=== PATIENT | female | born 1985 | race Caucasian/White ===

== ENCOUNTER 2019-04-15 11:44 | Inpatient (IN) | payer OTHER ==
[2019-04-15 12:31] LABS: Urine Benzodiazepine Screen None Detected (None Detect); Urine Opiates Screen None Detected (None Detect)
[2019-04-15] MEDS ORDERED: Misoprostol TAB* 100 MCG VAGINAL ONE (13:14)
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
[2019-04-15 18:38] LABS: ABS Basophils 0.1 10^3/ul (0-0.2); ABS Eosinophils 0.1 10^3/ul (0-0.6); ABS Lymphocytes 1.6 10^3/ul (1.0-4.8); ABS Monocytes 0.7 10^3/ul (0-0.8); ABS Neutrophils 6.8 10^3/ul (1.5-7.7); Eosinophil % 0.6 %; Hematocrit 37 % (35-47); Hemoglobin 12.1 g/dL (12.0-16.0); Lymphocyte % 16.9 %; Mean Corpuscular HGB Conc 33 g/dL (31-36); Mean Corpuscular Hemoglobin 27 pg (27-31); Mean Corpuscular Volume 84 fL (80-97); Mean Platelet Volume 9.3 fL (7.4-10.4); Platelet Count 175 10^3/uL (150-450); Red Cell Distribution Width 14 % (10-15); White Blood Count 9.3 10^3/uL (3.5-10.8)
[2019-04-15 18:56] LABS: Urine Benzodiazepine Screen None Detected (None Detect); Urine Opiates Screen None Detected (None Detect)
[2019-04-15] MEDS ORDERED: Oxytocin in LR* 20 UNITS/1,000 ML BAG IVPB SCH (19:00)
--- NOTE | 2019-04-16 01:33 | PN ---
Progress Note - Progress Note Date of Service: 04/16/19 SOAP: Subjective: Pt reports increasing discomfort and requests nitrous for pain mgmt. Pt reports + bloody show -LOF, + FM. Objective: BP:114/86, P:66, FHR: 120bpm, + accels, -decels, moderate variability. ctx q 2- 3min, cervix: 4cm/80/-2 Pitocin at 3 Assessment: 33 y.o. , 40wks 1d EGA, cat I NST, active labor Plan: 1) Con't pitocin 2) Nitrous oxide for pain mgmt, reviewed risks versus benefits 3) Reevaluate PRN
[2019-04-16] MEDS ORDERED: Morphine 10 MG/ML VIAL (1 ml) IV ONE (04:14)
[2019-04-16] MEDS ORDERED: Promethazine INJ(RESTRICTED)* 25 MG/ML 1 ML VIAL IV ONE (04:40)
--- NOTE | 2019-04-16 12:39 | PN ---
Progress Note - Progress Note Date of Service: 04/16/19 SOAP: Subjective: Pt reports contractions still mild-moderate. + Bloody show, + FM Objective: BP: 130/77, P:89, FHR: 125 bpm, + accels, -decels, moderate variability, ctx q 5 min. cervix: 5/80/-1 AROM- clear, moderate Assessment: 33 y.o. , cat I NST, active labor Plan: 1) AROM: clear 2) Ambulation and rest alternating 3) Reevaluate in 3 hrs or sooner PRN, consider pitocin augmentation if no progress
--- NOTE | 2019-04-16 16:39 | PN ---
Progress Note - Progress Note Date of Service: 04/16/19 SOAP: Subjective: Pt reports contractions are strong but infrequent. Con't leaking of clear fluid. + FM, VB, + bloody show Objective: BP: 115/64, P:87, R:18, T:98.6, FHR: 130bpm, + accels, -decels, mod variability cervix: 5/80/-1 Assessment: 33 y.o. , 40w1d EGA, Cat 1 NST, inadequate ctx. Plan: 1) Reviewed mgmt option and R/B and pt agrees with plan to con't with pitocin augmentation 2) Position changes and ambulation alternating with rest 3) Reevaluate in 2 hr or sooner PRN
[2019-04-16] MEDS ORDERED: Oxytocin in LR* 20 UNITS/1,000 ML BAG IVPB SCH ×2 (17:00→21:00)
[2019-04-16] MEDS ORDERED: fentaNYL* 50 MCG/ML 2 ML VIAL (100 MCG VIAL) ONE (19:43)
[2019-04-16] MEDS ORDERED: fentaNYL* 50 MCG/ML 2 ML VIAL (100 MCG VIAL) IV ONE (19:50)
--- NOTE | 2019-04-16 20:34 | PROCNOTE ---
[facility] OB: Delivery Note - Delivery A Date of : 04/16/19 Time of : 20:18 Sex: Female Score 1 Minute: 9 Score 5 Minutes: 9 Gestational Age in Weeks and Days at Delivery: 40 Weeks and 1 Days Delivery Method: Spontaneous Vaginal Labor: Induced Did Patient attempt ?: N/A, No Previous Amniotic Fluid: Clear Estimated Blood Loss: 250 Anesthesia/Analgesia: IM/IV, Nitrous-Labor Delivered By: Rosa Baca - Nursery Level of Nursery: Regular/Bedside - Perineum Perineal Injury: None/Intact Perineal Repair: None - Events Delivery Events of Note: Pitocin During Labor Delivery Events of Note Comment: Left nuchal arm
[2019-04-16] MEDS ORDERED: Glycerin ADULT SUPP PR PRN (20:35)
[2019-04-16] MEDS ORDERED: Witch Hazel PAD* JAR TOPICAL PRN (20:35)
[2019-04-16] MEDS ORDERED: Dibucaine 1% 28.35 GM TUBE PR PRN (20:35)
[2019-04-16] MEDS ORDERED: Acetaminophen TAB* 325 MG PO PRN (20:35)
[2019-04-16] MEDS: Ibuprofen TAB* 600 MG PO PRN (20:55)
[2019-04-16] MEDS ORDERED: Simethicone TAB* 80 MG TAB.CHEW PO SCH (21:00)
[2019-04-16] MEDS ORDERED: Lactated Ringers 1000 ML Bag* 1,000 ML IV SCH (21:00)
[2019-04-17] MEDS: Ibuprofen TAB* 600 MG PO PRN ×2 (05:15→16:07)
[2019-04-17] MEDS ORDERED: Ferrous Gluconate TAB* 324 MG TAB PO SCH (09:00)
[2019-04-17 12:00] LABS: ABS Eosinophils 0.1 10^3/ul (0-0.6); ABS Lymphocytes 1.5 10^3/ul (1.0-4.8); ABS Monocytes 0.8 10^3/ul (0-0.8); ABS Neutrophils 10.3 10^3/ul (1.5-7.7); Eosinophil % 0.7 %; Hematocrit 35 % (35-47); Hemoglobin 11.3 g/dL (12.0-16.0); Lymphocyte % 11.9 %; Mean Corpuscular HGB Conc 32 g/dL (31-36); Mean Corpuscular Hemoglobin 28 pg (27-31); Mean Corpuscular Volume 85 fL (80-97); Mean Platelet Volume 9.8 fL (7.4-10.4); Platelet Count 143 10^3/uL (150-450); Red Blood Count 4.11 10^6 /uL (3.70-4.87); Red Cell Distribution Width 14 % (10-15); White Blood Count 12.8 10^3/uL (3.5-10.8)
[2019-04-17] MEDS: Docusate CAP* 100 MG PO SCH (16:16)
[2019-04-18] MEDS: Docusate CAP* 100 MG PO SCH ×2 (05:10→08:03)
[2019-04-18 08:01] VITALS: BP 110/61
== END 2019-04-18 10:27 | disposition home or self-care (01) | DRG 807 ==
LOC: MCHOBOUT 11:44 → MCHOB 13:20
PROVIDERS: ADMIT Midwife; ATTEND Midwife
PROC: 10E0XZZ Delivery of Products of Conception, External Approach (ICD-10-PCS; principal; 2019-04-16)
PROC: 3E033VJ Introduction of Other Hormone into Peripheral Vein, Percutaneous Approach (ICD-10-PCS; 2019-04-16)
PROC: 10907ZC Drainage of Amniotic Fluid, Therapeutic from Products of Conception, Via Natural or Artificial Opening (ICD-10-PCS; 2019-04-16)
DX: O48.0 Post-term pregnancy (principal); Z37.0 Single live birth; Z3A.40 40 weeks gestation of pregnancy
CPT/HCPCS: 36415; 80307; 85025; A9270-GY; J2270; J2550; J3010; S0191

== ENCOUNTER 2021-04-02 07:52 | Inpatient (IN) ==
[2021-04-02] MEDS ORDERED: Lactated Ringers 1000 ml BAG 1,000 ML IV ONE (08:59)
[2021-04-02] MEDS ORDERED: Buffered Lidocaine 1% SYRIN 1 ml INTRADERM ONE (08:59)
[2021-04-02] MEDS ORDERED: Lactated Ringers 1000 ml BAG 1,000 ML IV SCH ×2 (09:00→23:00)
[2021-04-02 10:42] LABS: ABS Lymphocytes 1.4 10^3/ul (1.0-4.8); ABS Monocytes 0.7 10^3/ul (0-0.8); ABS Neutrophils 8.3 10^3/ul (1.5-7.7); Eosinophil % 0.4 %; Hematocrit 34 % (35-47); Hemoglobin 11.4 g/dL (12.0-16.0); Lymphocyte % 13.8 %; Mean Corpuscular HGB Conc 33 g/dL (31-36); Mean Corpuscular Hemoglobin 26 pg (27-31); Mean Corpuscular Volume 78 fL (80-97); Mean Platelet Volume 8.9 fL (7.4-10.4); Platelet Count 211 10^3/uL (150-450); Red Blood Count 4.38 10^6 /uL (3.70-4.87); Red Cell Distribution Width 15 % (10-15); White Blood Count 10.5 10^3/uL (3.5-10.8)
[2021-04-02 10:57] LABS: Urine Benzodiazepine Screen None Detected (None Detect); Urine Cannabinoids Screen None Detected (None Detect); Urine Opiates Screen None Detected (None Detect)
[2021-04-02] MEDS ORDERED: fentaNYL 100 mcg/2 ml 50 MCG/ML VIAL IV SLOW PU ONE ×3 (17:44→21:30)
[2021-04-02] MEDS ORDERED: Oxytocin in LR 20 UNITS/1,000 ML BAG IVPB SCH ×2 (20:00→23:00)
[2021-04-02] MEDS ORDERED: OBEPIDURAL 0 ML EPIDURAL ONE (22:15)
[2021-04-02] MEDS ORDERED: Witch Hazel PAD JAR TOPICAL PRN (22:54)
[2021-04-02] MEDS ORDERED: Dibucaine 1% OINT 28.35 GM TUBE PR PRN (22:54)
[2021-04-02] MEDS ORDERED: Glycerin ADULT 2.4 gm SUPP PR PRN (22:54)
[2021-04-03 06:50] LABS: ABS Basophils 0.1 10^3/ul (0-0.2); ABS Lymphocytes 1.7 10^3/ul (1.0-4.8); ABS Monocytes 1.2 10^3/ul (0-0.8); ABS Neutrophils 13.2 10^3/ul (1.5-7.7); Eosinophil % 0.3 %; Hematocrit 33 % (35-47); Hemoglobin 10.7 g/dL (12.0-16.0); Lymphocyte % 10.6 %; Mean Corpuscular HGB Conc 33 g/dL (31-36); Mean Corpuscular Hemoglobin 26 pg (27-31); Mean Corpuscular Volume 78 fL (80-97); Mean Platelet Volume 8.7 fL (7.4-10.4); Platelet Count 203 10^3/uL (150-450); Red Blood Count 4.19 10^6 /uL (3.70-4.87); Red Cell Distribution Width 15 % (10-15); White Blood Count 16.2 10^3/uL (3.5-10.8)
[2021-04-04 07:41] VITALS: BP 108/71
== END 2021-04-04 12:05 | disposition home or self-care (01) | DRG 807 ==
LOC: MCHOBOUT 07:52 → MCHOB 09:02
PROVIDERS: ADMIT Midwife; ATTEND Midwife